=== PATIENT | female | born 1965 | race Caucasian/White ===

== ENCOUNTER 2019-07-26 00:09 | Outpatient (CLI) | payer BC, SELFPAY ==
[2019-07-26 18:58] LABS: SARS-CoV-2 RNA PCR Negative
== END 2019-07-26 00:10 | disposition home or self-care (01) ==
PROVIDERS: PCP Physician Assistant; Visit Provider Surgery Plastic and Reconstructive Surgery
DX: Z01.818 Encounter for other preprocedural examination (principal); Z11.59 Encounter for screening for other viral diseases
CPT/HCPCS: 87635; C9803; U0003

== ENCOUNTER 2019-07-28 01:04 | Day surgery (SDC) | payer BC, SELFPAY ==
[2019-07-15 15:11] VITALS: BMI 33.0
[2019-07-28] VITALS (10 sets, daily range): BP systolic 110–126; BP diastolic 61–82; PULSE 71–84; RESP 11–18; TEMP 36.1–36.7; O2SAT 96–100
--- NOTE | 2019-07-28 06:54 | WPDHPUPDATE1 ---
History and Physical Update Update Date/Time: 07/28/19 06:54 History and Physical has been reviewed, including an updated exam of the patient. There are NO changes in the patient's condition. Risks, benefits, and alternatives have been discussed and questions answered. Patient agrees to proceed with procedure.
--- NOTE | 2019-07-28 06:54 | PM.PROC ---
Procedure Note - Detailed Date of procedure: 07/28/19 Pre-op diagnosis: acquired breast deformity History left breast cancer Post-op diagnosis: same Procedure performed: 1. Left breast reconstruction using tissue boarding machine operator 2. AlloDerm placement left breast [id number] (320cm2) Description of procedure: The patient was marked in the preoperative holding area with her verification. She was taken to the operating room placed supine on operating room table. Anesthesia provided by anesthesiology and prepped and draped in standard sterile fashion. A surgical time-out was taken. 1% lidocaine and 0.25% Marcaine with epinephrine was used to provide a field block. A 15 blade used to make an incision excising the previous mastectomy scar. Old hematoa with a well defined capsule was identified. I debrided as much of the capsule as I was able leaving the capsules on the skin flaps to protect vascularity. I created the appropriate size pocket for the tissue boarding machine operator. I irrigated with 2 litters of saline solution on TUR tubing. On the back table and soaked the AlloDerm with Betadine solution. I then created a wrap using AlloDerm around the tissue boarding machine operator. This was introduced in the pocket sutured in place with 2-0 Vicryl. A 15 Essence drain was placed sutured into place with 3-0 nylon. I then closed using 2-0 Vicryl followed by 3-0 Monocryl in a running subcuticular 4-0 Monocryl and tissue glue. Using a fill kit I filled the tissue boarding machine operator to fill volume without too much pressure on the flap and good color capillary refill of the flaps. This was 200cc. Dressing was placed. Patient was woken taken the PACU without difficulty. All instrument sponge counts were correct at the end the case. Anesthesia: GLMA Surgeon: Herman Nolen MD Estimated blood loss (mL): 20 Drains: Yes (left breast 15 essence.) Packing: No Pathology: yes (capsule / tissue left breast.) Complications: No immediate complications Condition: stable Disposition: PACU Findings: Left tissue boarding machine operator filled to 200cc saline. REF# [id number] Alloderm select [id number] (320cm2) Lot# [id number] REF# [id number]
[2019-07-28] MEDS: LACTATED RINGERS 1,000 ML 30 ML IV CONT ×2 (06:55→09:42)
--- NOTE | 2019-07-28 07:15 | WPDANESEPPF ---
Anes - Initial Pre Proc Eval Procedure: Operation Date: 07/28/19 07:30 Proposed Procedures p Left Breast Tissue Ski Tow Operator Placement with Alloderm - Herman Nolen MD Date/Time: 07/28/19 07:15 Surgeon: Herman Nolen MD Pre Op Diagnosis: acquired breast deformity Patient Data Age: 54 Gender: F Height: 5 ft 2 in Weight: 83.7 kg Last Vital Signs Temp 36.1 C L 07/28/19 07:06 Pulse 84 07/28/19 07:06 Resp 18 07/28/19 07:06 BP 121/76 07/28/19 07:06 Pulse Ox 99 07/28/19 07:06 Allergies Allergy/AdvReac Type Severity Reaction Status Date / Time No Known Allergies Allergy Verified 07/28/19 06:36 Home Medications Medication Instructions Recorded Confirmed Type alprazolam 1 mg tablet 1 mg PO QID tablet 03/30/19 07/28/19 History atorvastatin 40 mg tablet 40 mg PO DAILY tablet 03/30/19 07/28/19 History bupropion HCl 300 mg 24 hr tablet, 300 mg PO DAILY tablet 03/30/19 07/28/19 History extended release clomipramine 25 mg capsule 75 mg PO HS cap 03/30/19 07/28/19 History cyclobenzaprine 5 mg tablet 5 mg PO DAILY PRN 03/30/19 07/28/19 History krill 1,000 mg-omega-3 230 mg-dha 1 cap PO DAILY 03/30/19 07/28/19 History 60 xy-bev-loquwxyma-astaxan capsule multivitamin 1 tablet PO DAILY 03/30/19 07/28/19 History naproxen sodium 220 mg capsule 220 mg PO DAILY cap 03/30/19 07/28/19 History omeprazole 20 mg capsule,delayed 20 mg PO BID 03/30/19 07/28/19 History release raloxifene 60 mg tablet 60 mg PO DAILY 03/30/19 07/28/19 History risperidone 0.5 mg tablet 0.5 mg PO DAILY tablet 03/30/19 07/28/19 History bupropion HCl 150 mg PO DAILY 07/15/19 07/28/19 History ymarzdxc-rbry-rho5-C-tanisha-bosw 1 tablet PO DAILY 07/15/19 07/28/19 History [Osteo Bi-Flex Triple Strength] cephalexin 500 mg capsule 500 mg PO Q8H 21 Days #63 cap 07/18/19 07/28/19 Rx docusate sodium 100 mg capsule 100 mg PO BID #14 cap 07/18/19 07/28/19 Rx hydrocodone 5 mg-acetaminophen 325 1 tablet PO Q6H PRN #15 tablet 07/18/19 07/28/19 Rx mg tablet ondansetron HCl [Zofran] 4 mg PO Q6H PRN 07/28/19 07/28/19 History Laboratory Tests 07/28/19 06:59 Beta HCG, Quant Pending Patient hx anesthesia problems: none Family hx anesthesia problems: none [facility] Surgical History Surgical History History of left hip replacement 01/2009 History of mastectomy 02/01/19 Social History Social History Smoking status: Never smoker Alcohol intake: never Anes - Eval Final PreProcedure Day of Procedure 07/28/19 07:15 Patient weight: obese Heart: regular rate and rhythm Lungs: clear to auscultation Airway: Mallampati scale class II Neurological: alert and oriented Last oral intake: >/= 8 hours ASA classification: III Emergent: no Anesthetic plan: proceed Anesthesia type and monitoring: general LMA and standard monitoring Informed Consent: The patient's anesthetic plan and its attendant risks and benefits were discussed with the patient/family/POA. Questions were solicited and answers provided to the satisfaction of the patient/family/POA.
[2019-07-28 07:43] LABS: Beta HCG Quantitative < 2.39 mIU/ML
[2019-07-28] MEDS: ceFAZolin 2 GM/D5W 50 ML 2 GM/50 ML BAG IVPB (07:48)
[2019-07-28] MEDS: LIDO 1%/EPINEPHRINE 1:100,000 20 ML VIAL 80 ML INFILTRATE (09:05)
--- NOTE | 2019-07-28 09:25 | SUR.OPER ---
SPECIMEN GIVEN TO KO IN LAB AT [id number]
--- NOTE | 2019-07-28 11:26 | SUR.PHASEII ---
UPDATED. ASSISTANCE GETTING DRESSED OFFERED; PT DECLINED ASSISTANCE.
== END 2019-07-28 11:43 | disposition home or self-care (01) ==
PROVIDERS: Anesthesiology; PCP Physician Assistant; Visit Provider Surgery Plastic and Reconstructive Surgery
PROC: (CPT 19357; principal; 2019-07-28 07:30)
DX: Z42.1 Encounter for breast reconstruction following mastectomy (principal); Z85.3 Personal history of malignant neoplasm of breast; Z90.12 Acquired absence of left breast and nipple; E66.9 Obesity, unspecified; Z68.33 Body mass index [BMI] 33.0-33.9, adult
CPT/HCPCS: 19357; 15777; 36415; 84702; 88305; 88307; C1789; J0690; J1100; J1580; J2250; J2405; J2704; J3010; J7030; J7120; Q4116

== ENCOUNTER 2020-03-19 00:16 | Outpatient (CLI) | payer BC, SELFPAY ==
[2020-03-19 17:34] LABS: SARS-CoV-2 RNA PCR Negative
== END 2020-03-19 00:17 | disposition home or self-care (01) ==
LOC: ANHCOVIDDT 00:16
PROVIDERS: PCP Physician Assistant; Visit Provider Surgery Plastic and Reconstructive Surgery
DX: Z01.812 Encounter for preprocedural laboratory examination (principal); Z20.822 Contact with and (suspected) exposure to COVID-19
CPT/HCPCS: C9803; U0003; U0005

== ENCOUNTER 2020-03-19 14:29 | Outpatient (CLI) | payer BC, SELFPAY ==
--- NOTE | 2020-03-19 14:29 | ECG_ITS ---
Measurements Intervals [place] Rate: 80 P: 38 KS: 178 QRS: 66 QRSD: 102 T: 31 QT: 382 QTc: 441 Interpretive Statements SINUS RHYTHM LOW QRS VOLTAGE IN PRECORDIAL LEADS BORDERLINE T WAVE ABNORMALITY- ANTERIOR LEADS BASELINE ARTIFACT- I, II, III, AVR, AVL, AVF, V4, V6 BORDERLINE ECG Electronically Signed On 03-19-2020 14:43:45 [employer] by Juan Garcia D.O.
== END 2020-03-19 14:30 | disposition home or self-care (01) ==
PROVIDERS: PCP Physician Assistant; Visit Provider Surgery Plastic and Reconstructive Surgery
DX: Z01.818 Encounter for other preprocedural examination (principal); E78.00 Pure hypercholesterolemia, unspecified; R94.31 Abnormal electrocardiogram [ECG] [EKG]
CPT/HCPCS: 93005

== ENCOUNTER 2020-03-22 00:12 | Day surgery (SDC) | payer BC, SELFPAY ==
[2020-03-19 12:26] VITALS: BMI 34.7
--- NOTE | 2020-03-21 14:24 | WPDANESEPPF ---
Anes - Initial Pre Proc Eval Procedure: Operation Date: 03/22/20 07:30 Proposed Procedures p Right Breast Reduction with Right Mastopexy - Herman Nolen MD s Possible Right Breast Augmentation For Symmetry - MD dian Hammond Left Tissue Framing Mill Operator Helper Exchange For Implant, Left Capsulotomy, Left Breast Fat Grafting - Herman Nolen MD Date/Time: 03/21/20 14:24 Surgeon: Herman Nolen MD Pre Op Diagnosis: Hx Of Breast CA Patient Data Age: 55 Gender: F Height: 5 ft 2 in Weight: 86.2 kg Allergies Allergy/AdvReac Type Severity Reaction Status Date / Time No Known Allergies Allergy Verified 03/22/20 06:53 Home Medications Medication Instructions Recorded Confirmed Type alprazolam 1 mg tablet 1 mg PO QID tablet 03/30/19 03/22/20 History atorvastatin 40 mg tablet 40 mg PO DAILY tablet 03/30/19 03/22/20 History bupropion HCl 300 mg 24 hr tablet, 300 mg PO DAILY tablet 03/30/19 03/22/20 History extended release clomipramine 25 mg capsule 75 mg PO HS cap 03/30/19 03/22/20 History cyclobenzaprine 5 mg tablet 5 mg PO DAILY PRN 03/30/19 03/22/20 History krill 1,000 mg-omega-3 230 mg-dha 1 cap PO DAILY 03/30/19 03/22/20 History 60 ze-zix-rrmyfaswy-astaxan capsule multivitamin 1 tablet PO DAILY 03/30/19 03/22/20 History naproxen sodium 220 mg capsule 220 mg PO DAILY cap 03/30/19 03/22/20 History omeprazole 20 mg capsule,delayed 20 mg PO BID 03/30/19 03/22/20 History release raloxifene 60 mg tablet 60 mg PO DAILY 03/30/19 03/22/20 History risperidone 0.5 mg tablet 0.5 mg PO HS tablet 03/30/19 03/22/20 History Osteo Bi-Flex Triple Strength 1 tablet PO DAILY 07/15/19 03/22/20 History bupropion HCl 150 mg PO DAILY 07/15/19 03/22/20 History hydrocodone 5 mg-acetaminophen 325 1 tablet PO Q6H PRN #15 tablet 02/29/20 03/22/20 Rx mg tablet ondansetron HCl 4 mg tablet 4 mg PO Q6H PRN #30 tablet 02/29/20 03/22/20 Rx Patient hx anesthesia problems: none Family hx anesthesia problems: none PMF Past Medical History Medical History (Updated 03/21/20 @ 14:23 by Rico Haro MD) Anxiety Depression GERD (gastroesophageal reflux disease) Hypercholesteremia Surgical History Surgical History History of left hip replacement 01/2009 History of mastectomy 02/01/19 Social History Social History (Updated 02/29/20 @ 10:25 by Ashleigh Pisano RN) Smoking packs per day: 1 Smoking cigarettes per day: 20.0 Years smoked: 30 Smoking pack-years: 30.00 Smoking status: Former smoker Tobacco type: cigarettes Smoking end date: 02/16/18 Alcohol intake: never Living arrangements: with family Spiritual care concerns: No Anes - Eval Final PreProcedure Day of Procedure 03/21/20 14:24 Patient weight: overweight Heart: regular rate and rhythm Lungs: clear to auscultation Airway: Mallampati scale class III Neurological: alert and oriented Last oral intake: >/= 8 hours ASA classification: II Emergent: no Anesthetic plan: proceed Anesthesia type and monitoring: general and standard monitoring Informed Consent: The patient's anesthetic plan and its attendant risks and benefits were discussed with the patient/family/POA. Questions were solicited and answers provided to the satisfaction of the patient/family/POA.
[2020-03-22] VITALS (8 sets, daily range): BP systolic 106–137; BP diastolic 73–93; PULSE 80–88; RESP 10–20; TEMP 36.3–37.2; O2SAT 98–100
--- NOTE | 2020-03-22 07:11 | WPDHPUPDATE1 ---
History and Physical Update Update Date/Time: 03/22/20 07:11 History and Physical has been reviewed, including an updated exam of the patient. There are NO changes in the patient's condition. Risks, benefits, and alternatives have been discussed and questions answered. Patient agrees to proceed with procedure.
[2020-03-22] MEDS: LACTATED RINGERS 1,000 ML 30 ML IV CONT ×2 (07:15→11:08)
--- NOTE | 2020-03-22 07:30 | SUR.PREOP ---
Dr. Nolen aware that patient is unable to give urine sample. Waving urine cotinine test due to previous sample being negative.
[2020-03-22] MEDS: ceFAZolin 2 GM/D5W 50 ML 2 GM/50 ML BAG IVPB (07:35)
[2020-03-22] MEDS: LIDO 1%/EPINEPHRINE 1:100,000 50 ML VIAL 30 ML INFILTRATE (08:29)
--- NOTE | 2020-03-22 10:34 | PM.PROC ---
Procedure Note - Detailed Date of procedure: 03/22/20 Pre-op diagnosis: Hx Of Breast CA Procedure performed: 1. Left breast tissue edge finisher exchange for implant 2. Left breast capsulotomy 3. Left breast fat grafting 70 cc (harvest side bilateral flank) 4. Right breast mastopexy (with slight reduction, tissue sent to pathology) 5. Right breast augmentation 6. Right lateral breast suction lipectomy Description of procedure: Preoperatively the risks, benefits, alternatives were discussed in extensive detail. I want her to be very realistic about the risks involved as well as expectations. Made sure answered all of her questions to her satisfaction and consent obtained. In a standing position she was marked preoperatively. Taken to the operating room placed supine on the operating room table. Anesthesia was provided by anesthesiology and prepped and draped in a standard sterile fashion. Surgical time-out was taken. Thorough abdominal examination was completed. I used a 14 gauge needle to make puncture sites near the bilateral flanks. Using a 3 mm multi hole suction cannula to gravity separation I completed suction lipectomy in the necessary volume for fat grafting. I gave adequate time for separation of the adipose portion and only use that central adipose portion. This was introduced to the left breast superficial to the edge finisher with a puncture site using a 14 gauge needle in multiple planes and passes to make sure there was a good contour. I did a field block bilateral breast with 1% lidocaine and 0.25% Marcaine with epinephrine. Left breast 15 blade used to make an incision excising part of the lateral aspect of the scar. Dissection was continued down to the tissue edge finisher was identified this was removed. I completed superior and just a small amount a lateral capsulotomy based on her preoperative planning. I irrigated with 3 L of saline solution on TUR tubing. Once I verified strict hemostasis I irrigated with triple antibiotic Betadine containing solution. Used a Islas funnel. No touch technique. Implant was introduced into the pocket. This was closed with 2-0 Vicryl followed by 3-0 Monocryl in a running subcuticular 4-0 Monocryl tissue glue. Right breast I marked out the nipple-areolar complex at 38 mm. De-epithelialized a superior pedicle. I did de-epithelialized the lower portion of this breast in order to create a soft tissue flap cup cover the implant. Ten blade used to make the remainder of the incisions and then I did a breast reduction with 144 g removed on the right breast just to help adjust and allow for the implant pacemaker on the right for good symmetry. Tissue was very thick with just a really the central portion being removed. I copiously irrigated with saline solution. Verified strict hemostasis. I then placed a Sizer on the right breast and tailor tacked into place. Put her in a sitting position and verified symmetry. I then used a 4 mm basket cannula based on S.A.F.E. technique on the right breast until we had good contour matching between sides. This was a low volume. Patient was placed supine. I then again irrigated with saline solution. Verified strict hemostasis.. Then with triple antibiotic Betadine containing solution. Implant was introduced into the pocket. I covered the inferior pole this pocket with the inferior de-epithelialized flap. I closed using 2-0 Vicryl on the implant and then 2-0 PDS along the vertical as well as along the IMF. Nipple-areolar complex based on superior pedicle was inset with 3-0 Monocryl. The vertical was closed with 3-0 Monocryl. IMF 3-0 strata fix. I then closed everything using a running subcuticular 4-0 Monocryl and tissue glue. Dressings were placed. She was woken taken to the PACU without difficulty. All instrument sponge counts were correct at the end of the case. Anesthesia: GLMA Surgeon: Herman Nolen MD Estimated blood loss (mL): 75 Drains: No Packi
[2020-03-22] MEDS: fentaNYL CITRATE INJ (*CRX) 100 MCG/2 ML VIAL 25 MCG IV PUSH (11:47)
--- NOTE | 2020-03-22 13:19 | SUR.PHASEII ---
1305 - dr. lei called in regards to rt breast firmness and significant size difference. spoke with JOYCE Salinas. Rita called back after speaking with dr. lei and he is to come and assess pt [id number] - pt's called and updated.
--- NOTE | 2020-03-22 13:40 | SUR.PHASEII ---
1325 - dr. lei at bedside assessing pt. no orders received at this time.
== END 2020-03-22 13:31 | disposition home or self-care (01) ==
PROVIDERS: PCP Physician Assistant; Visit Provider Surgery Plastic and Reconstructive Surgery
PROC: 0HBV0ZZ Excision of Bilateral Breast, Open Approach (ICD-10-PCS; CPT 19318; principal; 2020-03-22 07:30)
PROC: (CPT 11970; 2020-03-22 07:30)
PROC: (CPT 19342; 2020-03-22 07:30)
DX: Z42.1 Encounter for breast reconstruction following mastectomy (principal); N64.89 Other specified disorders of breast; Z85.3 Personal history of malignant neoplasm of breast; Z90.12 Acquired absence of left breast and nipple; N60.31 Fibrosclerosis of right breast; E78.00 Pure hypercholesterolemia, unspecified; F41.8 Other specified anxiety disorders; K21.9 Gastro-esophageal reflux disease without esophagitis; Z87.891 Personal history of nicotine dependence
CPT/HCPCS: 11970; 19325; 19316; 15771; 15772; 88305; J0131; J0171; J0690; J1100; J1580; J2250; J2405; J2704; J3010; J7120